=== PATIENT | male | born 1995 | race African-American/Black ===

== ENCOUNTER 2016-12-04 00:31 | Emergency (ER) | payer OTHER ==
[2016-12-04 00:41] VITALS: RESP 16; O2SAT 97
[2016-12-04 01:06] LABS: % IMMATURE GRANULYOCYTES 0.3 % (0.0-1.1); ABSOLUTE IMMATURE GRANULOCYTES 0.03 10^3/uL (0.00-0.10); ADD DIFF? NO; ADD MORPH? NO; ADD SCAN? NO; ATYPICAL LYMPHOCYTE FLAG 0 (0-99); FRAGMENT RBC FLAG 0 (0-99); HEMATOCRIT 42.8 % (40.0-51.0); LEFT SHIFT FLG 0 (0-99); LIPEMIA HEMOLYSIS FLAG 90 (0-99); MEAN CELL HEMOGLOBIN 27.5 pg (27.9-34.1); MEAN CELL VOLUME 78.4 fL (81.5-99.8); MEAN PLATELET VOLUME 11.6 fL (8.7-11.7); PLATELET CLUMPS FLAG 20 (0-99); PLATELET COUNT 108 10^3/uL (150-400); RED BLOOD CELL COUNT 5.46 10^6/uL (4.40-6.38); RED CELL DISTRIBUTION WIDTH 13.1 % (11.5-15.2)
[2016-12-04] MEDS ORDERED: NS 1,000 ML IV ONE (01:10)
[2016-12-04 01:26] LABS: ALANINE AMINOTRANSFERASE 52 IU/L (21-72); ALBUMIN 4.7 g/dL (3.5-5.0); ALKALINE PHOSPHATASE 74 IU/L (38-126); ANION GAP 11 mEq/L (8-16); ASPARTATE AMINOTRANSFERASE 32 IU/L (17-59); BILIRUBIN,TOTAL 0.8 mg/dL (0.1-1.4); BILIRUBIN-CONJUGATED 0.4 mg/dL (0.0-0.5); BILIRUBIN-UNCONJUGATED 0.4 mg/dL (0.0-1.1); CALCIUM 9.4 mg/dL (8.5-10.4); CARBON DIOXIDE 24 mEq/l (22-31); CHLORIDE 107 mEq/L (97-110); GLOMERULAR FILTRATION RATE > 60; GLUCOSE 90 mg/dL (70-100); SODIUM 142 mEq/L (134-144); TOTAL PROTEIN 7.3 g/dL (6.3-8.2)
--- NOTE | 2016-12-04 01:38 | EDPHY ---
H & P Stated Complaint: RLQ pain X 2 hours Time Seen by Provider: 12/04/16 00:46 HPI/ROS: HPI The patient presents with right lower quadrant pain which began about 2 hours ago and woke him from sleep. It is sharp in nature, does not radiate, is moderate in severity and is worse with changes in position. He has no prior history of similar pain. He does not have any nausea, vomiting, diarrhea, constipation, anorexia, fever. He does not have any difficulty urinating, testicular pain, hematuria. He has no prior history of similar pain. REVIEW OF SYSTEMS Constitutional: No fever, no chills. Eyes: No discharge. ENT: No sore throat. Cardiovascular: No chest pain, no palpitations. Respiratory: No cough, no shortness of breath. Gastrointestinal: See HPI Genitourinary: No hematuria. Musculoskeletal: No back pain. Skin: No rashes. Neurological: No headache. PMHx: Healthy PHYSICAL General Appearance: Alert, no distress Eyes: Pupils equal and round no pallor or injection ENT, Mouth: Mucous membranes moist Respiratory: There are no retractions, lungs are clear to auscultation Cardiovascular: Regular rate and rhythm Gastrointestinal: Abdomen is soft with tenderness in his right lower quadrant without rebound or guarding Neurological: A&O, moves all extremities Skin: Warm and dry, no rashes Musculoskeletal: Neck is supple non tender Extremities: symmetrical, full range of motion Psychiatric: Patient is oriented X 3, there is no agitation Source: Patient Exam Limitations: No limitations - Personal History Current Tetanus/Diphtheria Vaccine: Yes Current Tetanus Diphtheria and Acellular Pertussis (TDAP): Yes - Medical/Surgical History Hx Asthma: No Hx Chronic Respiratory Disease: No Hx Diabetes: No Hx Cardiac Disease: No Hx Renal Disease: No Hx Cirrhosis: No Hx Alcoholism: No Hx HIV/AIDS: No Hx Splenectomy or Spleen Trauma: No Other PMH: hand surgery - Social History Smoking Status: Never smoked Constitutional: Initial Vital Signs Temperature (C) 37.1 C 12/04/16 00:39 Heart Rate 90 12/04/16 00:39 Respiratory Rate 16 12/04/16 00:39 Blood Pressure 132/78 H 12/04/16 00:39 O2 Sat (%) 97 12/04/16 00:39 O2 Delivery Mode Room Air Allergies/Adverse Reactions: No Known Allergies Allergy (Unverified 12/04/16 00:38) Home Medications: Medication Instructions Recorded NK [No Known Home Meds] 12/04/16 Medical Decision Making - Diagnostics Imaging Results: Right lower quadrant ultrasound demonstrates no visualized appendix, no secondary signs of appendicitis, discussed with Dr. Enamorado of Radiology. Differential Diagnosis: This is a 21-year-old male with no significant past medical history who presents with several hours of right lower quadrant abdominal pain without any other symptoms. On exam, he is tender in the right lower quadrant. Differential diagnosis includes appendicitis, colitis, renal colic, musculoskeletal pain. In the emergency room, the patient was monitored. Serial abdominal exams were unchanged. Ultrasound was performed showing no secondary signs of appendicitis , though the appendix was not visualized. Labs were checked and were unremarkable. The patient felt well and his pain improved while in the emergency room. He will be discharged with early appendicitis as a possibility. Though I feel musculoskeletal pain is probably more likely. - Data Points Laboratory Results: Laboratory Results 12/04/16 01:00 12/04/16 01:00 12/04/16 12/04/16 01:00 01:00 WBC 10.23 10^3/uL H 10^3/uL (3.80-9.50) RBC 5.46 10^6/uL 10^6/uL (4.40-6.38) Hgb 15.0 g/dL g/dL (13.7-17.5) Hct 42.8 % % (40.0-51.0) MCV 78.4 fL L fL (81.5-99.8) MCH 27.5 pg L pg (27.9-34.1) MCHC 35.0 g/dL g/dL (32.4-36.7) RDW 13.1 % % (11.5-15.2) Plt Count 108 10^3/uL L 10^3/uL (150-400) MPV 11.6 fL fL (8.7-11.7) Neut % (Auto) 59.5 % % (39.3-74.2) Lymph % (Auto) 28.9 % % (15.0-45.0) [place] % (Auto) 6.1 % % (4.5-13.0) Eos % (Auto) 4.4 % % (0.6-7.6) Baso % (Auto) 0.8 % % (0.3-1.7) Nucleat RBC Rel Count 0.0 % % (0.0-0.2) Absolute Neuts (auto) 6.09 10^3/uL 10^3/uL (1.70-6.50) Absolute Lymphs (auto) 2.96 10^3/uL 10^3/uL (1.00-3.00) Absolute Monos (auto) 0.62 10^3/uL 10^3/uL (0.30-0.80) Absolute Eos (auto) 0.45 10^3/uL H 10^3/uL (0.03-0.40) Absolute Basos (auto) 0.08 10^3/uL 10^3/uL (0.02-0.10) Absolute Nucleated RBC 0.00 10^3/uL 10^3/uL (0-0.01) Immature Gran % 0.3 % % (0.0-1.1) Immature Gran # 0.03 10^3/uL 10^3/uL (0.00-0.10) Sodium 142 mEq/L mEq/L (134-144) Potassium 4.0 mEq/L mEq/L (3.5-5.2) Chloride 107 mEq/L mEq/L (97-110) Carbon Dioxide 24 mEq/l mEq/l (22-31) Anion Gap 11 mEq/L mEq/L (8-16) BUN 13 mg/dL mg/dL (7-23) Creatinine 1.0 mg/dL mg/dL (0.7-1.3) Estimated GFR > 60 Glucose 90 mg/dL mg/dL (70-100) Calcium 9.4 mg/dL mg/dL (8.5-10.4) Total Bilirubin 0.8 mg/dL mg/dL (0.1-1.4) Conjugated Bilirubin 0.4 mg/dL mg/dL (0.0-0.5) Unconjugated Bilirubin 0.4 mg/dL mg/dL (0.0-1.1) AST 32 IU/L IU/L (17-59) ALT 52 IU/L IU/L (21-72) Alkaline Phosphatase 74 IU/L IU/L (38-126) Total Protein 7.3 g/dL g/dL (6.3-8.2) Albumin 4.7 g/dL g/dL (3.5-5.0) Medications Given: Discontinued Medications Sodium Chloride (Ns) 1,000 mls @ 0 mls/hr IV ONCE ONE PRN Reason: Wide Open Stop: 12/04/16 01:11 Last Admin: 12/04/16 01:10 Dose: 1,000 mls Departure - Departure Disposition: Home, Routine, Self-Care Clinical Impression: Right lower quadrant abdominal pain Condition: Good Instructions: Acute Abdominal Pain (ED) Additional Instructions: Please return to the emergency room if your pain continues tomorrow. If your pain gets worse, if you developed fever or vomiting, please return to the ER. Referrals: MICKI GOYAL [Other] - As per Instructions
[2016-12-04 01:57] VITALS: BP 128/74; PULSE 69; TEMP 98.4
== END 2016-12-04 01:57 | disposition home or self-care (01) ==
DX: R10.31 Right lower quadrant pain (principal)